=== PATIENT | female | born 1940 | race Caucasian/White ===

== ENCOUNTER 2017-01-17 06:10 | Day surgery (SDC) | payer OTHER ==
[~2017-01-17 06:10] MED LIST: CARV3.122 PO; CARV6.252 PO; DIPH25CA58 PO; FURO-68 PO; HYDR-2758 PO; LEVO100T PO; LOSA50TA6 PO; OMEG1CAP6 PO; POTASSIUM CHLO10 MEQ PO; RANI150T2 PO; SIMV40TA3 PO; VALA500T PO
[2017-01-17] MEDS ORDERED: PROCHLORPERAZINE 10 MG/2 ML VIAL. IV PRN (07:00)
[2017-01-17] MEDS ORDERED: MORPHINE SULFATE 2 MG/ML DISP.SYRIN. IV PRN (07:00)
[2017-01-17] MEDS ORDERED: LIDOCAINE 1% 1 ML SYRINGE. ID PRN (07:00)
[2017-01-17] MEDS ORDERED: fentaNYL PF VIAL 100 MCG/2 ML VIAL IV PRN ×2 (07:00)
[2017-01-17] MEDS ORDERED: ONDANSETRON PF 4 MG/2 ML VIAL. IV PRN (07:00)
[2017-01-17] MEDS ORDERED: HYDROmorphone 2 MG/ML VIAL IV PRN (07:00)
[2017-01-17] MEDS ORDERED: IV RINGERS,LACTATED 1000ML 1,000 ML IV SCH (07:00)
[2017-01-17] MEDS ORDERED: PROPOFOL 20 ML IV ONE (07:08)
[2017-01-17] MEDS ORDERED: LIDOCAINE 2% VISCOUS 15 ML SOLUTION. ONE (07:23)
[2017-01-17] MEDS ORDERED: LIDOCAINE 2% TOPICAL JELLY 30GM TUBE. TP ONE (07:23)
[2017-01-17] MEDS ORDERED: BENZOCAINE ONE 20% MUCOSAL SPRAY. (07:23)
[2017-01-17 09:52] VITALS: BP 161/72
--- NOTE | 2017-01-17 12:26 | CARD ---
APPROVED REPORT EXAM: Transesophageal echocardiogram with color flow Doppler. INDICATION Evaluate mitral regurgitation Reason For Test : Evaluation of mitral regurgitation. PROCEDURE After obtaining informed consent, patient underwent transesophageal echo in the PACU. Type of Sedation : General Anesthesia Sedation was provided by anesthesiologist, see EMR for medications administered. Sedation was achieved with Propofol 160 mg intravenously. Transesophageal probe was inserted and advanced into esophagus by Ivan Castillo MD. The AKI was performed without complications. Throughout the procedure, the blood pressure, pulse oximetry, cardiac rhythm, and rate were monitored . The patient tolerated the procedure without adverse effects. Recovery from conscious sedation was une ventful and vital signs were stable. LEFT VENTRICLE The left ventricle is normal size. There is normal left ventricular wall thickness. Left ventricle sy stolic function is normal. The Ejection Fraction is 50-55%. There is normal LV segmental wall motion. RIGHT VENTRICLE The right ventricle is normal size. The right ventricular systolic function is normal. ATRIA The left atrium size is normal. The right atrium size is normal. The interatrial septum is intact wit h no evidence for an atrial septal defect or patent foramen ovale as noted on 2-D or Doppler imaging. There is no thrombus noted in the left atrial appendage. AORTIC VALVE The aortic valve is normal in structure and function. The aortic valve is trileaflet. Doppler and Col or Flow revealed no significant aortic regurgitation. MITRAL VALVE The posterior mitral leaflet at the P2/P3 segment appears to be restricted. Doppler and Color Flow re vealed moderate mitral regurgitation. TRICUSPID VALVE The tricuspid valve is normal in structure and function. Doppler and Color Flow revealed no tricuspid valve regurgitation noted. PULMONIC VALVE The pulmonic valve is not well visualized. GREAT VESSELS The aortic root is normal in size. Normal pulmonary venous flow (Doppler). The IVC was visualized and appears normal in size. A pacemaker/ICD wire is seen in the IVC. The SVC was visualized and appears normal in size. PERICARDIAL EFFUSION There is no pleural effusion. Critical Notification Critical Value: No <Conclusion> Left ventricle systolic function is normal. The Ejection Fraction is 50-55%. There is normal LV segmental wall motion. There is no thrombus noted in the left atrial appendage. The posterior mitral leaflet at the P2/P3 segment appears to be restricted. Doppler and Color Flow re vealed moderate mitral regurgitation at a BP of 160/80 and HR 79. The IVC was visualized and appears normal in size. A pacemaker/ICD wire is seen in the IVC. The SVC w as visualized and appears normal in size.
== END 2017-01-17 10:17 | disposition home or self-care (01) ==
LOC: SURG 06:10
PROVIDERS: ATTEND Internal Medicine Cardiovascular Disease
DX: I34.0 Nonrheumatic mitral (valve) insufficiency (principal); I11.0 Hypertensive heart disease with heart failure; I50.9 Heart failure, unspecified; I25.10 Atherosclerotic heart disease of native coronary artery without angina pectoris; E78.00 Pure hypercholesterolemia, unspecified; I10 Essential (primary) hypertension; E03.9 Hypothyroidism, unspecified; Z86.69 Personal history of other diseases of the nervous system and sense organs; Z90.710 Acquired absence of both cervix and uterus; Z86.39 Personal history of other endocrine, nutritional and metabolic disease; Z91.040 Latex allergy status
CPT/HCPCS: 76376; 93312; 93325; J2704

== ENCOUNTER 2017-01-29 06:18 | Outpatient (CLI) | payer OTHER ==
[~2017-01-29] VITALS: Ht 162.6 cm; Wt 79.4 kg
[2017-01-29 07:22] LABS: HEMATOCRIT 36.8 % (36.0-47.0); HEMOGLOBIN 12.2 g/dL (12.0-15.5); RED BLOOD COUNT 3.84 x10^6/uL (3.50-5.40); WHITE BLOOD COUNT 6.5 x10^3/uL (4.0-11.0)
[2017-01-29 07:34] LABS: PROTHROMBIN TIME PATIENT 12.3 SEC (11.7-14.0)
[2017-01-29 07:39] VITALS: BP 149/70
[2017-01-29 07:42] LABS: CALCIUM 9.1 mg/dL (8.5-10.1); CREATININE 1.3 mg/dL (0.6-1.0); GFR 39.9
[2017-01-29] MEDS ORDERED: BACITRACIN 50,000 UNIT in IV NORMAL SALINE 250ML 250 ML IRR STA (09:00)
[2017-01-29] MEDS ORDERED: LIDOCAINE 2%/EPI 1:100,000 20 ML VIAL. ONE (09:19)
[2017-01-29] MEDS ORDERED: MIDAZOLAM HCL/PF 5 MG/5 ML VIAL. ONE (09:34)
[2017-01-29] MEDS ORDERED: fentaNYL PF VIAL 250 MCG/5 ML VIAL ONE (09:35)
[2017-01-29] MEDS ORDERED: LIDOCAINE 2%/EPI 1:100,000 20 ML VIAL. IJ ONE (10:15)
[2017-01-29] MEDS ORDERED: MIDAZOLAM HCL/PF 5 MG/5 ML VIAL. IV ONE (10:15)
[2017-01-29] MEDS ORDERED: fentaNYL PF VIAL 250 MCG/5 ML VIAL IV ONE (10:15)
[2017-01-29 10:27] VITALS: BP 135/70
--- NOTE | 2017-01-29 10:31 | PDOC ---
MODERATE SEDATION ASSESSMENT RISKS/ALTERNATIVES Risks/Alternatives Risks and alternatives of this type of sedation and procedure discussed with: RISK/ALTERNATIVES: Patient H & P ON CHART H & P H & P on chart and reviewed for co-morbid conditions and appropriate labs. H&P ON CHART: Yes STATUS PREG STATUS ASSESSED: N/A MEDS/ALLERGIES REVIEWED Meds/Allergies Reviewed Medications and Allergies including time and route of recently administered narcotics and sedatives. MEDS/ALLERGIES REVIEWED: Yes ASA RATING ASA RATING: II AIRWAY ASSESSMENT Airway Assessment Airway patency, oral function limitations, presence of caps, crowns, dentures, partials, and ability to extend neck assessed. AIRWAY ASSESSMENT: Yes MALLAMPATI SCORE MALLAMPATI SCORE: II PRE-SEDATION ASSESSMENT PRE-SEDATION ASSESSMENT: Yes KATAI BERG MD Jan 29, 2017 10:31
[2017-01-29 10:44] VITALS: BP 148/80
[2017-01-29] MEDS ORDERED: NO ANTICOAGULANT THERAPY. MC PRN (10:45)
--- NOTE | 2017-01-29 10:54 | CARD ---
APPROVED REPORT EXAM Successful Bi[employer]ik biventricular ICD/VICE PRINCIPAL-D generator change INDICATIONS Severe nonischemic cardiomyopathy s/p biventricular ICD/VICE PRINCIPAL-D implantation presenting with battery de pletion PROCEDURE After explaining the risks, benefits, and alternative options, informed consent was obtained from the patient. The patient was brought to the cardiac catheterization lab and the left chest and shoulder were prepp ed and draped in the usual fashion. 30 mL of 2% lidocaine was infiltrated into the skin and subcutaneous tissues for local anesthesia. An incision was made over the previous scar and using blunt dissection and cautery, the pocket was open ed, capsule exposed and opened and the previously placed generator was removed from the pocket. The l yasmine were detached from the generator, interrogated and reattached to a new Bi[employer]ik biventricular I CD/VICE PRINCIPAL-D generator model Itrevia 7 HF-T DF-1, serial #[id number]. This was placed in the pocket that wa s subsequently closed in 3 layers. Hemostasis was secured. Patient tolerated the procedure well. Ther e were no immediate complications. CONCLUSION Successful Biot[employer]ik biventricular ICD/VICE PRINCIPAL-D generator change for battery depletion in a patient with severe nonischemic cardiomyopathy
[2017-01-29 11:00] VITALS: BP 138/82
[2017-01-29 11:15] VITALS: BP 141/77
[2017-01-29 11:30] VITALS: BP 112/53
== END 2017-01-29 11:41 | disposition home or self-care (01) ==
LOC: CCL 06:18
PROVIDERS: ATTEND Internal Medicine Cardiovascular Disease
DX: I42.8 Other cardiomyopathies (principal); T82.191A Other mechanical complication of cardiac pulse generator (battery), initial encounter; Y84.8 Other medical procedures as the cause of abnormal reaction of the patient, or of later complication, without mention of misadventure at the time of the procedure; E78.00 Pure hypercholesterolemia, unspecified; I10 Essential (primary) hypertension; K21.9 Gastro-esophageal reflux disease without esophagitis; E03.9 Hypothyroidism, unspecified; M19.90 Unspecified osteoarthritis, unspecified site; Z86.69 Personal history of other diseases of the nervous system and sense organs; Z90.710 Acquired absence of both cervix and uterus; Z87.39 Personal history of other diseases of the musculoskeletal system and connective tissue; Z91.040 Latex allergy status
CPT/HCPCS: 33213; 36415; 80048; 85027; 85610; C2621; J0690; J2250; J3010; J3490; J7050; 99152; 99153; J7030

== ENCOUNTER → 2020-10-20 | Outpatient (CLI) | payer MEDICARE ==
[~2020-10-20] MED LIST changes: +CARV3.1210 PO; -CARV3.122 PO; +CARV6.2511 PO; -CARV6.252 PO; -HYDR-2758 PO; +HYDR-2761 PO; +LEVO-101 PO; -LEVO100T PO; +LOSA-73 PO; -LOSA50TA6 PO; +POTA10TA12 PO; -POTASSIUM CHLO10 MEQ PO; +SIMV40TA18 PO; -SIMV40TA3 PO; -VALA500T PO; +VALA500T9 PO
--- NOTE | 2020-10-20 16:43 | CARD ---
MR#: [id number] Date of Study: 10/20/2020 Ordering Physician: KATIA BERG, Referring Physician: KATIA BERG, Tech: Jessi Jiang RDCS APPROVED REPORT EXAM: Two-dimensional and M-mode echocardiogram with Doppler and color Doppler. Other Information Quality : Good INDICATION NonIschemic Cardiomyopathy Surgery/Intervention ICD/Pacemaker: Date: 2010 2D DIMENSIONS RVDd1.9 (2.9-3.5cm)Left Atrium(2D)3.2 (1.6-4.0cm) IVSd0.7 (0.7-1.1cm)Aortic Root(2D)2.9 (2.0-3.7cm) LVDd5.9 (3.9-5.9cm)LVOT Diameter2.0 (1.8-2.4cm) PWd0.7 (0.7-1.1cm)LVDs4.7 (2.5-4.0cm) FS (%) 19.4 %SV67.5 ml LVEF(%)39.3 (>50%) Aortic Valve AoV Peak Edward.127.1cm/sAoV VTI26.3cm AO Peak GR.6.5mmHgLVOT Peak Edward.88.6cm/s LVOT VTI 19.08cmAO Mean GR.4mmHg SHANNAN (VMAX)1.23iq5SMX (VTI)2.21cm2 AI P 1/2 Mmdy752pa Mitral Valve MV E Buoruzhh51.0cm/sMV DECEL [id number] MV A Pbksmomz109.7cm/sMV JDN02kn E/A Ratio0.7MVA (PHT)4.95cm2 TDI E/Lateral E'19.3E/Medial E'17.1 Tricuspid Valve TR P. Zqqsxlzr082yx/sRAP UCLSWOOB4nqRa TR Peak Gr.54axDdMSUW09joFi Pulmonary Vein S1 Ctdulvja17.4cm/sD2 Fjciovpz44.0cm/s LEFT VENTRICLE The left ventricle is normal size. There is normal left ventricular wall thickness. The Ejection Frac tion is 35-40%. Left ventricle systolic function is moderately impaired. Septal motion suggestive of conduction defect, otherwise, there is moderate global hypokinesis of the left ventricle. Transmitral Doppler flow pattern is Grade I-abnormal relaxation pattern. RIGHT VENTRICLE The right ventricle cavity is small. The right ventricular systolic function is normal. There is a pa cemaker lead in the right ventricle. ATRIA The left atrium size is normal. The right atrium size is normal. A pacemaker is seen in the right atr ium consistent with history. The interatrial septum is intact with no evidence for an atrial septal d efect or patent foramen ovale as noted on 2-D or Doppler imaging. AORTIC VALVE The aortic valve is calcified but opens well. Doppler and Color Flow revealed trace aortic regurgitat ion. There is no significant aortic valvular stenosis. MITRAL VALVE The mitral valve is normal in structure and function. There is no evidence of mitral valve prolapse. There is no mitral valve stenosis. Doppler and Color-flow revealed mild mitral regurgitation. TRICUSPID VALVE The tricuspid valve is normal in structure and function. Doppler and Color Flow revealed physiologica l tricuspid regurgitation. The PA pressure was estimated at 20 mmHg. There is no tricuspid valve sten osis. PULMONIC VALVE The pulmonic valve is not well visualized. Doppler and Color Flow revealed trace pulmonic valvular re gurgitation. There is no pulmonic valvular stenosis. GREAT VESSELS The aortic root is normal in size. The ascending aorta is normal in size. The IVC is normal in size a nd collapses >50% with inspiration. PERICARDIAL EFFUSION There is no evidence of significant pericardial effusion. Critical Notification Critical Value: No <Conclusion> The Ejection Fraction is 35-40%. Left ventricle systolic function is moderately impaired. Septal motion suggestive of conduction defect, otherwise, there is moderate global hypokinesis of the left ventricle. There is a pacemaker lead in the right ventricle. Signed by : Dony Castillo, Electronically Approved : 10/20/2020 16:42:30
== END ==
LOC: ECHO 10:17
PROVIDERS: ATTEND Internal Medicine Cardiovascular Disease
DX: I08.3 Combined rheumatic disorders of mitral, aortic and tricuspid valves (principal); I42.9 Cardiomyopathy, unspecified; Z95.0 Presence of cardiac pacemaker
CPT/HCPCS: 93306

== ENCOUNTER → 2021-04-26 | Outpatient (CLI) | payer MEDICARE ==
[~2021-04-26] MED LIST changes: +REGADENOSON 0.4 MG/5 ML DISP.SYRIN. IV ONE
--- NOTE | 2021-04-26 11:50 | RAD ---
MR#: [id number] Date of Study: 04/26/2021 Ordering Physician: KATIA BERG, Referring Physician: BRANDEN BROWN Tech: RT Barb De La Paz) (N) APPROVED REPORT Test Type: Pharmacological Stress Nurse/Tech: Serafin Larry RN Test Indications: CAD Cardiac History: HTN, PPM/AICD, Medications: See Electronic Medical Record Medical History: See Electronic Medical Record Resting ECG: AV paced Resting Heart Rate: 66 bpm Resting Blood Pressure: 147/64mmHg Pretest Chest Pain: None Nurse/Tech Notes Lungs CTA, S1S2 Consent: The procedure was explained to the patient in lay terms. Informed consent was witnessed. Nazario eout was entered into [facility]. History and Stress Test performed by RT Dank De La PazR) (N) Pharm. Details Pharmacologic stress testing was performed using 0.4mg per 5ml of regadenoson given intravenously ove r 7-10 seconds. Stress Symptoms No chest pain or symptoms. POST EXERCISE Reason for Termination: Infusion complete Max HR: 68 bpm Chest Pain: No. Arrhythmia: No. ST Change: No. INTERPRETATION Stress EKG Conclusion: Non-diagnostic EKG due to pacing artifact. Imaging Protocol IMAGE PROTOCOL: Rest Tc-99m/stress Tc-99m 1 day Rest: Stress: Viability: Radiopharm.Tc99m MziggnkawCv51o Sestamibi Dose10.1mCi 33mCi Duration 13min. 13min. Img Date 04/26/2021 04/26/2021 Inj-Img Liwo34jdy. 60min. Rest Admin Site:IV - Right AntecubitalAdministrator:RT Barb De La Paz)(N) Stress Admin Site: IV - Right AntecubitalAdministrator: HAMILTON Quiñones STRESS DATA End Diast. Vol.108.0mlLVEDV index BSA59.0ml End Syst. Vol.28.0mlLVESV index BSA15.0ml Myocardial Cafc849.0gEject. Edplewva64.0% Stress Scores Regional WT0.00Summed WT15.00 Regional WM0.00Summed WM0.00 LV Perfusion There is a small sized fixed apical defect consistent with prior infarct without active ischemia. Th is may be artifact due to apical thinning. Wall Motion Normal wall motion with an EF of greater than 70% LV Perf. Quant 17 Seg. SSS4.00 17 Seg. SRS9.00 17 Seg. SDS0.00 Stress Defect Extent (% LAD)12.50Rest Defect Extent (% LAD)21.90Rev. Defect Extent (% LAD)7.50 Stress Defect Extent (% LCX) 8.80Rest Defect Extent (% LCX)27.50Rev. Defect Extent (% LCX)8.80 Stress Defect Extent (% RCA)0.00Rest Defect Extent (% RCA)3.30Rev. Defect Extent (% RCA)0.00 Stress Defect Extent (% ZACARIAS)7.00Rest Defect Extent (% ZACARIAS)22.60Rev. Defect Extent (% ZACARIAS)4.30 Other Information Quality:Fair Risk Assessment: Low Risk Conclusion 1. Nondiagnostic EKG due to pacing artifact 2. Fixed apical defect suggestive of prior infarct versus fibrosis. No active ischemia 3. Normal EF at greater than 60%. 4. Low risk study overall. Signed by : Dony Castillo, Electronically Approved : 04/26/2021 11:49:43
== END ==
LOC: NM 10:21
PROVIDERS: ATTEND Internal Medicine Cardiovascular Disease
DX: I25.10 Atherosclerotic heart disease of native coronary artery without angina pectoris (principal)
CPT/HCPCS: 78452; 93017; A9500; J2785

== ENCOUNTER → 2021-11-24 | Outpatient (CLI) | payer MEDICARE ==
[~2021-11-24] MED LIST changes: -REGADENOSON 0.4 MG/5 ML DISP.SYRIN. IV ONE
--- NOTE | 2021-11-24 15:48 | CARD ---
MR#: [id number] Date of Study: 11/24/2021 Ordering Physician: KATIA BERG, Referring Physician: Neda BROWN: OLESYA MCNULTY [facility] APPROVED REPORT EXAM: Two-dimensional and M-mode echocardiogram with Doppler and color Doppler. Other Information Quality : AverageHR: 98bpm Rhythm : NSR INDICATION Dyspnea Cardiomyopathy 2D DIMENSIONS RVDd2.8 (2.9-3.5cm)Left Atrium(2D)3.4 (1.6-4.0cm) IVSd0.6 (0.7-1.1cm)LVDd5.5 (3.9-5.9cm) PWd0.4 (0.7-1.1cm) Aortic Valve AoV Peak Edward.112.0cm/sAoV VTI24.2cm AO Peak GR.5.0mmHgLVOT Peak Edward.77.0cm/s AO Mean GR.3mmHg Tricuspid Valve TR P. Wwieayen949az/sRAP QFUWWTFD6mfAp TR Peak Gr.77zbOpZRDA98iuNa Pulmonary Vein S1 Lkyhckew79.6cm/sD2 Xtgrouan24.5cm/s LEFT VENTRICLE The left ventricle is normal size. There is borderline to mild concentric left ventricular hypertroph y. LV systolic function is mildly impaired. LV ejection fraction is 40 to 45%. No regional wall motio n abnormalities noted. The left ventricular diastolic function is normal. No left ventricle thrombus noted on this study. There is no ventricular septal defect visualized. There is no left ventricular a neurysm. There is no mass noted in the left ventricle. RIGHT VENTRICLE The right ventricle is normal size. There is normal right ventricular wall thickness. The right ventr icular systolic function is normal. There are device leads in the right ventricle and atria. ATRIA The left atrium size is normal. The right atrium size is normal. The interatrial septum is intact wit h no evidence for an atrial septal defect or patent foramen ovale as noted on 2-D or Doppler imaging. AORTIC VALVE The aortic valve is tri-cuspid. Doppler and Color Flow revealed no significant aortic regurgitation. There is no significant aortic valvular stenosis. There is no aortic valvular vegetation. MITRAL VALVE The mitral valve is normal in structure and function. There is no evidence of mitral valve prolapse. There is no mitral valve stenosis. Doppler and Color-flow revealed mild to moderate mitral regurgitat ion. TRICUSPID VALVE The tricuspid valve is normal in structure and function. Doppler and Color Flow revealed mild tricusp id regurgitation. The PA pressure was estimated at 20 mmHg. There is no tricuspid valve prolapse or v egetation. There is no tricuspid valve stenosis. PULMONIC VALVE The pulmonary valve is normal in structure and function. There is no pulmonic valvular regurgitation. There is no pulmonic valvular stenosis. GREAT VESSELS The aortic root is normal in size. The ascending aorta is normal in size. The pulmonary artery is nor mal. The IVC is normal in size and collapses >50% with inspiration. PERICARDIAL EFFUSION There is no pleural effusion. The pericardium appears normal. Critical Notification Critical Value: No <Conclusion> The left ventricle is normal size. LV systolic function is mildly impaired. LV ejection fraction is 40 to 45%. No regional wall motion abnormalities noted. There is borderline to mild concentric left ventricular hypertrophy. Doppler and Color Flow revealed no significant aortic regurgitation. There is no significant aortic valvular stenosis. Doppler and Color-flow revealed mild to moderate mitral regurgitation. Doppler and Color Flow revealed mild tricuspid regurgitation. The PA pressure was estimated at 20 mmHg. Signed by : Luis Triplett MD Electronically Approved : 11/24/2021 15:48:40
== END ==
LOC: ECHO 12:19
PROVIDERS: ATTEND Internal Medicine Cardiovascular Disease
DX: I08.1 Rheumatic disorders of both mitral and tricuspid valves (principal); I42.9 Cardiomyopathy, unspecified; R06.00 Dyspnea, unspecified
CPT/HCPCS: 93306; C8929